=== PATIENT | male | born 1945 | race Caucasian/White ===

== ENCOUNTER 2022-07-04 15:43 | Outpatient (REF) | payer MEDICARE, SELFPAY ==
[2022-07-04 17:43] LABS: ALT 42 U/L (16-63); AST 26 U/L (15-37); Albumin 3.4 g/dL (3.4-5.0); Alkaline Phosphatase 87 U/L (46-116); Anion Gap 7.4 mmol/L (3-11); BUN 12 mg/dL (7-18); Bilirubin, Total 0.4 mg/dL (0.2-1.0); CO2 28.6 mmol/L (21.0-32.0); CREATININE 0.9 mg/dL (0.70-1.30); Calcium 8.7 mg/dL (8.5-10.1); Chloride 103 mmol/L (98-107); Estimated GFR 89.62 (mL/min/1.73m2); Glucose 115 mg/dL (74-106); Potassium 4.5 mmol/L (3.5-5.1); Sodium 139 mmol/L (136-145); TSH 1.91 uIU/mL (0.36-3.74); Total Protein 6.3 g/dL (6.4-8.2)
[2022-07-04 17:45] LABS: Abs Immature Grans 0.01 10^3/uL (0.0-0.06); Absolute Basophil Count 0.02 10^3/uL (0.0-0.2); Absolute Lymphocyte Count 0.98 10^3/uL (1.2-3.4); Absolute Monocyte Count 0.34 10^3/uL (0.1-0.8); Absolute Neutrophil Count 2.99 10^3/uL (1.2-6.7); Basophils % 0.4; Eosinophils % 4.4; HCT 38.8 % (40.0-50.0); Immature Grans % 0.2; Lymphocytes % 21.6; MCH 31.6 pg (27.0-33.0); MCHC 33.5 % (32.0-36.0); MCV 94 fL (80-95); MPV 11.4 fL (8.0-11.0); Monocytes % 7.5; Neutrophils % 65.9; Platelet Count 111 10^3/uL (130-400); RBC 4.11 10^6/uL (4.36-5.78); RDW 14.1 % (11.8-14.1); RDW-SD 47.9 fL; WBC 4.54 10^3/uL (4.4-10.8)
[2022-07-04 18:20] LABS: Hemoglobin A1C 5.8 % (<5.7)
[2022-07-04 21:49] LABS: Diff Comment PLT Morph Reviewed; RBC Morphology Normal
== END 2022-07-04 15:44 | disposition home or self-care (01) ==
LOC: LBN 15:43
PROVIDERS: PCP Legal Medicine; Visit Provider Legal Medicine
DX: I10 Essential (primary) hypertension (principal); R73.9 Hyperglycemia, unspecified
CPT/HCPCS: 80053; 83036; 84443; 85025